=== PATIENT | female | born 1995 | race Caucasian/White ===

== ENCOUNTER 2019-01-31 11:13 | Emergency (ER) | payer OTHER ==
--- NOTE | 2019-01-31 11:29 | ER Document Report ---
ED Medical Screen (RME) - General Chief Complaint: Headache Stated Complaint: HEADACHE,NAUSEA/VOMITING Time Seen by Provider: 01/31/19 11:26 Mode of Arrival: Ambulatory Information source: Patient Notes: 24-year-old female presents to ED for complaint of headache with nausea and vomiting. She has a history of migraines. She does see a neurologist for her headaches. She has had a new headache medicines that she is not picked up as yet. She does have a list of allergies that she is discussing with her nurse. She is in a female relationship and states there is no chance that she is pre gnant. Patient has no obvious neurological symptoms. We will order a GI cocktail which she will get and be seen by another provider in the back. I have greeted and performed a rapid initial assessment of this patient. A comprehensive ED assessment and evaluation of the patient, analysis of test results and completion of medical decision making process will be conducted by an additional ED providers. Physical Exam - Vital signs Vitals: Temp Pulse Resp BP Pulse Ox 98.1 F 77 20 129/71 H 100 01/31/19 11:21 01/31/19 11:21 01/31/19 11:21 01/31/19 11:21 01/31/19 11:21 Course - Vital Signs Vital signs: Temp Pulse Resp BP Pulse Ox 98.1 F 77 20 129/71 H 100 01/31/19 11:21 01/31/19 11:21 01/31/19 11:21 01/31/19 11:21 01/31/19 11:21
[2019-01-31] MEDS ORDERED: KETOROLAC TROMETHAMINE INJ/PF 30 MG/1 ML SDV IV ONE (11:30)
[2019-01-31] MEDS ORDERED: PROCHLORPERAZINE EDISYLATE INJ 10 MG/2 ML VIAL IV ONE (11:30)
[2019-01-31] MEDS ORDERED: DIPHENHYDRAMINE HCL 50 MG/ML VIAL IV ONE (11:30)
[2019-01-31] MEDS ORDERED: NORMAL SALINE 1000 ML 1,000 ML IV ONE (11:31)
--- NOTE | 2019-01-31 12:09 | ER Document Report ---
ED General - General Chief Complaint: Headache Stated Complaint: HEADACHE,NAUSEA/VOMITING Time Seen by Provider: 01/31/19 11:26 Mode of Arrival: Ambulatory TRAVEL OUTSIDE OF THE [place] IN LAST 30 DAYS: No - HPI Patient complains to provider of: headache Notes: 24 y/o presenting to ED for migraine she normally has a triptan at home but did not have her medicine today she describes a bilateral throbbing headache consistent w/ previous headache she has seen a neurologist previously and this is similar to previous no neck pain or fever she is sensitive to light and sound - Related Data Allergies/Adverse Reactions: amoxicillin Allergy (Verified 01/31/19 11:28) clarithromycin [From Biaxin] Allergy (Verified 01/31/19 11:28) escitalopram [From Lexapro] Allergy (Verified 01/31/19 11:28) ketamine Allergy (Verified 01/31/19 11:28) Penicillins Allergy (Verified 01/31/19 11:28) Sulfa (Sulfonamide Antibiotics) Allergy (Verified 01/31/19 11:28) yellow dye Allergy (Verified 01/31/19 11:28) Past Medical History - General Information source: Patient - Social History Smoking Status: Never Smoker Chew tobacco use (# tins/day): No Frequency of alcohol use: None Drug Abuse: None Family History: Reviewed & Not Pertinent Patient has suicidal ideation: No Patient has homicidal ideation: No - Past Medical History Cardiac Medical History: Reports: Hx Atrial Fibrillation Neurological Medical History: Reports: Hx Migraine Psychiatric Medical History: Reports: Hx Depression - and anxiety Past Surgical History: Reports: Hx Cholecystectomy Review of Systems - Review of Systems Constitutional: No symptoms reported EENT: No symptoms reported Cardiovascular: No symptoms reported Respiratory: No symptoms reported Gastrointestinal: No symptoms reported Genitourinary: No symptoms reported Female Genitourinary: No symptoms reported Musculoskeletal: No symptoms reported Skin: No symptoms reported Hematologic/Lymphatic: No symptoms reported Neurological/Psychological: Headaches Physical Exam - Vital signs Vitals: Temp Pulse Resp BP Pulse Ox 98.1 F 77 20 129/71 H 100 01/31/19 11:21 01/31/19 11:21 01/31/19 11:21 01/31/19 11:21 01/31/19 11:21 Interpretation: Normal - General General appearance: Appears well, Alert - HEENT Head: Normocephalic, Atraumatic Eyes: Normal Pupils: PERRL Neck: Normal, Supple. No: Anterior cervical chain, Posterior cervical chain - Respiratory Respiratory status: No respiratory distress Chest status: Nontender Breath sounds: Normal Chest palpation: Normal - Cardiovascular Rhythm: Regular Heart sounds: Normal auscultation Murmur: No - Abdominal Inspection: Normal Distension: No distension Bowel sounds: Normal Tenderness: Nontender Organomegaly: No organomegaly - Back Back: Normal, Nontender - Extremities General upper extremity: Normal inspection, Nontender, Normal color, Normal ROM, Normal temperature General lower extremity: Normal inspection, Nontender, Normal color, Normal ROM, Normal temperature, Normal weight bearing. No: Casey's sign - Neurological Neuro grossly intact: Yes Cognition: Normal Orientation: AAOx4 [place] Coma Scale Eye Opening: Spontaneous [place] Coma Scale Verbal: Oriented [place] Coma Scale Motor: Obeys Commands [place] Coma Scale Total: 15 Speech: Normal Motor strength normal: LUE, RUE, LLE, RLE Sensory: Normal - Psychological Associated symptoms: Normal affect, Normal mood - Skin Skin Temperature: Warm Skin Moisture: Dry Skin Color: Normal Course - Re-evaluation Re-evalutation: 01/31/19 13:04 patient given ivf and toradol prior to me seeing her and feels better requests discharge no meningismus on exam - Vital Signs Vital signs: Temp Pulse Resp BP Pulse Ox 98.1 F 77 20 129/71 H 100 01/31/19 11:21 01/31/19 11:21 01/31/19 11:21 01/31/19 11:21 01/31/19 11:21 Discharge - Discharge Clinical Impression: Migraine Qualifiers: Migraine type: unspecified Status migrainosus presence: without status migrainosus Intractability: not intractable Qualified Code(s): G43.909 - Migraine, unspecified, not intractable, without status migrainosus Disposition: HOME, SELF-CARE Instructions: Headache ([facility]) Additional Instructions: follow up with primary doctor return to ED for worsening Forms: Parent Work Note
[2019-01-31 13:19] VITALS: BP 107/71
== END 2019-01-31 13:20 | disposition home or self-care (01) ==
LOC: ER 11:13
DX: G43.909 Migraine, unspecified, not intractable, without status migrainosus (principal); R11.2 Nausea with vomiting, unspecified
CPT/HCPCS: 99283; 96361; 96374; 96375; J1200; J1885; J0780; J7030